=== PATIENT | male | born 1985 | race Caucasian/White ===

== ENCOUNTER 2025-08-17 19:31 | Inpatient (IN) | payer BC, SELFPAY ==
[2025-08-17 19:33] VITALS: BMI 29.8
--- NOTE | 2025-08-17 19:35 | EKG_ITS ---
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1985 Requested By: ED Temporary Provider Order Number: [id number] Reading MD: ED Temporary Provider Measurements Intervals [place] Rate: 100 P: 48 AL: 144 QRS: -69 QRSD: 110 T: 93 QT: 362 QTc: 468 Interpretive Statements SINUS TACHYCARDIA LEFT ATRIAL ENLARGEMENT [-0.15mV P-WAVE IN V1/V2] INCOMPLETE RIGHT BUNDLE BRANCH BLOCK [90+ ms QRS DURATION, TERMINAL R IN V1/V2, 40+ ms S IN I/aVL/V4/V5/V6] LEFT ANTERIOR FASCICULAR BLOCK [QRS AXIS <= -45, QR IN I, RS IN II] LEFT VENTRICULAR HYPERTROPHY AND ST-T CHANGE [VOLTAGE CRITERIA PLUS ST/T ABNORMALITY] No previous ECG available for comparison /[id number]/[email or web address]/[id number].pdf
[2025-08-17 20:04] VITALS: BP 250/158; PULSE 103; RESP 20; TEMP 36.9; O2SAT 98
--- NOTE | 2025-08-17 20:15 | XR_ITS ---
EXAMINATION: PA chest single view TECHNIQUE: Upright PA chest single view Date and time: August 17, 2025, 2056 hours INDICATIONS: Hypertension today with chest pain cardiac palpitations. FINDINGS: Early CHF. Mild to moderate enlargement left ventricle Prominent vascular congestion. Septal edema at the lung bases with small bilateral pleural effusions IMPRESSION: Mild CHF
--- NOTE | 2025-08-17 20:15 | PD.EDRME ---
Rapid Medical Screening Exam RME Arrival date/time: 08/17/25 19:31 This is a case of 39-year-old male with with history of hypertension came in due to chest pain palpitation and hide BP noted 200/150 at home persistence of the symptoms this patient decided to sought consult here in the emergency room Chief Complaint: General Adult/Misc Complain Vital signs: Vital Signs Temperature 98.4 F 08/17/25 20:04 Pulse Rate 103 H 08/17/25 20:04 Respiratory Rate 20 08/17/25 20:04 Blood Pressure 250/158 H 08/17/25 20:04 Pulse Oximetry (%) 98 08/17/25 20:04 Oxygen Delivery Method Room Air 08/17/25 20:04 Exam: Clear breath sounds normal rate regular rhythm no murmur Clinical Impression: Chest pain uncontrolled hypertension
[2025-08-17 20:27] VITALS: BP 250/158; PULSE 103
[2025-08-17 20:50] LABS: Basophils # (Auto) 0.1 Thou/mm3 (0.0-0.2); Basophils % (Auto) 0 % (0-2.5); Eosinophils # (Auto) 0.1 Thou/mm3 (0.0-0.5); Eosinophils % (Auto) 1 % (0-10); Hematocrit 36.6 % (41.0-53.0); Hemoglobin 11.8 g/dL (13.5-16.0); Immature Granulocytes Auto 0.04 Thou/mm3 (0.00-0.00); Lymphocytes # (Auto) 1.5 Thou/mm3 (1.0-4.8); Lymphocytes % (Auto) 12 % (10-50); Mean Corpuscular HGB Conc 32.2 g/dl (31.0-37.0); Mean Corpuscular Hemoglobin 26.9 pg (25.0-35.0); Mean Corpuscular Volume 83 fL (80-100); Monocytes # (Auto) 0.6 Thou/mm3 (0.0-0.8); Monocytes % (Auto) 5 % (0-12); Neutrophils # (Auto) 10.0 Thou/mm3 (1.8-7.7); Neutrophils % (Auto) 82 % (37-80); Nucleated Red Blood Cell # 0.00 Thou/mm3 (0.00-0.00); Nucleated Red Blood Cell % 0 /100 WBC (0); Platelet Count 260 Thou/mm3 (140-440); RDW Standard Deviation 41.4 fL (35.1-43.9); Red Blood Count 4.39 Miln/mm3 (4.50-5.90); White Blood Count 12.2 Thou/mm3 (3.8-10.6)
[2025-08-17 21:12] LABS: B-Type Natriuretic Peptide 678 pg/mL (0-100)
[2025-08-17 21:17] LABS: Alanine Aminotransferase 23 U/L (10-49); Albumin, Serum 4.4 gm/dL (3.5-5.0); Albumin/Globulin Ratio 1.5 (1.2-2.2); Alkaline Phosphatase 104 U/L (46-116); Anion Gap 8 (7-16); Aspartate Amino Transferase 22 U/L (0-34); BUN/Creatinine Ratio 11 Ratio (12-20); Bilirubin,Total 0.6 mg/dL (0.3-1.2); Blood Urea Nitrogen 15 mg/dL (9-23); Calcium 9.5 mg/dL (8.3-10.6); Calcium (Corrected) 9.5 mg/dL (8.5-10.1); Carbon Dioxide 26.0 mMol/L (20.0-31.0); Chloride 107 mMol/L (98-107); Creatinine (Component) 1.4 mg/dL (0.6-1.3); Estimated Creatinine Clearance 85.8 mL/min (>60); Globulin 2.9 gm/dL (2.3-3.5); Glucose 102 mg/dL (74-106); Osmolality,Calculated 282 (275-295); Potassium 4.4 mMol/L (3.4-5.1); Sodium 141 mMol/L (136-145); Thyroid Stimulating Hormone 1.90 uIU/mL (0.55-4.78); Total Protein 7.3 gm/dL (5.7-8.2); eGFR > 60 See Note
[2025-08-17 21:19] LABS: Troponin I 0.123 ng/mL (0.0-0.045)
[2025-08-17 21:44] LABS: Collection Type, Urine Voided; Squamous Epithelial Cell,Urine 0 /hpf (0-5); WBC,Urine 0 /hpf (0-5)
[2025-08-17 21:49] LABS: Bilirubin,Urine Negative (Negative); Blood,Urine Negative (Negative); Clarity,Urine Clear (Clear/Hazy); Color,Urine Lt-Yellow (Lt Yel-Yel); Glucose, Urine Negative (Negative); Ketones,Urine Negative (Negative); Leukocyte Esterase,Urine Negative (Negative); Nitrite,Urine Negative (Negative); PH,Urine 6.5 (5.0-7.0); Protein,Urine Negative (Neg - Trace); RBC,Urine 2 /hpf (0-3); Specific Gravity,Urine 1.017 (1.001-1.035); Urobilinogen,Urine Negative mg/dL (0.0-1.0)
[2025-08-17 22:09] VITALS: BP 222/150; PULSE 100; RESP 25; TEMP 36.9; O2SAT 24
--- NOTE | 2025-08-17 22:20 | PD.EDADULT ---
ED General RME/HPI General Chief complaint: General Adult/Misc Complain Stated complaint: HIGH BP Time Seen by Provider: 08/17/25 22:25 Arrival date/time: 08/17/25 19:31 RME / HPI RME / HPI narrative: 08/17/25 19:31 This is a case of 39-year-old male with with history of hypertension came in due to chest pain palpitation and hide BP noted 200/150 at home persistence of the symptoms this patient decided to sought consult here in the emergency room Dr. Kelly?s Main ED Evaluation: 39yo male presents to the ED for a chief complaint of high blood pressure. Patient states he initially started having some blurry vision to his left eye at the end of June and was started on Brimonidine Tartrate eye drops, but was told to follow-up with his PCP for routine labs. Patient was recently diagnosed with HTN last week and started on lisinopril 10mg 4x/day, reporting he has since been compliant with the medication. Patient has been consistently checking his blood pressure since and his blood pressure has been over 200 systolically and was concerned, so he came in for evaluation. Patient notes he did have chest tightness at 1700 that has since resolved. Denies any shortness of breath, cough, headache, dizziness, or any other associated symptoms. NKA. Related Data Allergies Allergy/AdvReac Type Severity Reaction Status Date / Time No Known Allergies Allergy Verified 08/17/25 19:32 Review of Systems Review of Systems Systems Reviewed: All systems reviewed, normal except as documented Past Medical History Past Medical History CARDIAC: Positive Hypertension; Negative Congestive Heart Failure RESPIRATORY: Negative Chronic Obstructive Pulmonary Disease (COPD) GENITOURINARY: Negative Renal Disease ENDOCRINE: Negative Diabetes Mellitus Type 1 or Diabetes Mellitus Type 2 Social History SMOKING STATUS: Current every day smoker ED Exam Narrative Physical exam: Generally patient is alert no obvious distress, heart regular rate and rhythm, lungs clear to auscultation equal bilaterally, abdomen soft bowel sounds present also nontender, skin is warm pale and dry, neurologic exam no focal motor deficits. No facial asymmetry. Melrude Coma Scale of 15. Course Course Course Narrative: CXR is ordered for determining the etiology of chest pain. Quality Measures none Orders Category Date Time Status EKG (ED ONLY) *Do not use* NOW Care 08/17/25 19:36 Completed EKG (ED ONLY) *Do not use* NOW Care 08/17/25 20:15 Completed EKG (ED Only) Stat Exams 08/17/25 19:35 Draft EKG (ED Only) Stat Exams 08/17/25 20:15 Ordered XR chest 1V Stat Exams 08/17/25 20:15 Completed BNP [B-Type Natriuretic Peptide] Stat Lab 08/17/25 20:33 Completed CBC Stat Lab 08/17/25 20:33 Completed CMP [Comprehensive Metabolic Panel] Stat Lab 08/17/25 20:33 Completed Drug Screen,Urine Stat Lab 08/17/25 23:17 Completed TSH [Thyroid Stimulating Hormone] Stat Lab 08/17/25 20:33 Completed Troponin I Stat Lab 08/17/25 20:33 Completed Troponin I Stat Lab 08/17/25 22:40 Completed Urinalysis Stat Lab 08/17/25 21:26 Completed Labetalol* IV [Trandate IV] Med 08/17/25 22:36 Discontinued 20 mg IVP X1 ONE Labetalol* IV [Trandate IV] Med 08/18/25 00:07 Discontinued 20 mg IVP X1 ONE cloNIDine HCL [Catapres] Med 08/17/25 20:15 Discontinued 0.2 mg PO X1 ONE Vital Signs Vital signs: Vital Signs Temperature 98.4 F 08/17/25 20:04 Pulse Rate 103 H 08/17/25 20:04 Respiratory Rate 20 08/17/25 20:04 Blood Pressure 250/158 H 08/17/25 20:04 Pulse Oximetry (%) 98 08/17/25 20:04 Oxygen Delivery Method Room Air 08/17/25 20:04 Critical Care Time Critical Care Time Total Critical Care Time (min.): 35 Attestation: Excluding other billable procedures Discharge Plan Plan Patient Disposition: Admit Acute Care w/in Hospital Prescriptions/Referrals Referrals: Jeff Hair([facility])MD [Primary Care Provider, Family Practice] - In 1 week Problem List Clinical Impression: Poorly-controlled hypertension, Elevated troponin Patient/Caregiver Discharge Instructions Print Language: Swedish Stand Alone Forms: [employer] Award Info., Patient Portal Info Letter MDM Narrative MDM hospital course (for use when minimal MDM required): Scribe Attestation: 08/17/25 - IKelin am scribing for and in the presence of Dr. Kelly. Patient has poorly controlled hypertension with a blood pressure of 234/166. Patient was complained of chest pain hours prior to presentation. First troponin was 0.123 and the second troponin 2 hours later was 0.123 without change. Chest x-ray shows evidence for vascular congestion. BNP is elevated at greater than 600. EKG showed no ST segment elevations or depressions but does show left ventricular hypertrophy. Patient received labetalol 20 mg IV which helped decrease the blood pressure 183/134. Patient will receive a second dose of labetalol 20 mg IV. I did discuss this case with the hospitalist and the patient will require admission to the hospital for further treatment and evaluation. Differential diagnosis: Hypertensive emergency, poorly controlled hypertension, acute coronary syndrome, CHF Clinical Information Provided by: patient Medical Records reviewed [facility] (Per chart review, patient has no previous ED visits or admissions to this facility.) Meds/Rx considered, not ordered None Labs/Rad/Tests considered, not ordered None Chronic Illness/Social Conditions Explain: Hx HTN Labs Labs: interpreted by me Imaging Imaging interpretation: interpreted by me Imaging Interpretation(s): [place] [facility] Report Signed Patient: PRECIOUS GORDON [facility]. Record#: [id number] Birthdate: 1985 Age/Sex: 39 / M Location: [facility] Attending Dr: Ordering Physician: León Alcantar Date of Service: 08/17/25 Procedure(s): XR chest 1V Accession Number(s): [id number] cc: Lavelle Villatoro MD; León Alcantar~ EXAMINATION: PA chest single view TECHNIQUE: Upright PA chest single view Date and time: August 17, 2025, 2056 hours INDICATIONS: Hypertension today with chest pain cardiac palpitations. FINDINGS: Early CHF. Mild to moderate enlargement left ventricle Prominent vascular congestion. Septal edema at the lung bases with small bilateral pleural effusions IMPRESSION: Mild CHF Dictated By: Lavelle Villatoro MD Signed By: <Electronically signed by Lavelle Villatoro MD in OV> 08/17/252121 Medication Administration(s) Medication Administration History Discontinued Medications Clonidine (Clonidine Hcl 0.1 Mg Tablet) 0.2 mg PO X1 ONE Stop: 08/17/25 20:16 Last Admin: 08/17/25 20:27 Dose: 0.2 mg Documented By: SOM Labetalol HCl (Labetalol Inj 5 Mg/Ml Vial 4 Ml) 20 mg IVP X1 ONE Stop: 08/17/25 22:37 Last Admin: 08/17/25 22:47 Dose: 20 mg Documented By: RADHA Labetalol HCl (Labetalol Inj 5 Mg/Ml Vial 4 Ml) 20 mg IVP X1 ONE Stop: 08/18/25 00:08 Last Admin: 08/18/25 00:14 Dose: 20 mg Documented By: RADHA see above Diagnosis Differential Diagnosis ED Complaint MDM: See MDM
[2025-08-17 23:01] VITALS: BP 201/138
[2025-08-17 23:19] LABS: Troponin I 0.123 ng/mL (0.0-0.045)
[2025-08-17 23:46] LABS: Amphetamine/Methamp Scrn,U Negative (Negative); Barbiturate Screen,Urine Negative (Negative); Benzodiazepines Screen,Urine Negative (Negative); Benzoylecgonine Screen, Ur Negative (Negative); Fentanyl Screen,Urine Negative (Negative); Opiate Screen,Urine Negative (Negative); THC Screen,Urine Positive (Negative)
[2025-08-18] VITALS (19 sets, daily range): BP systolic 150–221; BP diastolic 94–134; PULSE 68–89; RESP 12–20; TEMP 36.3–37.1; O2SAT 96–98
--- NOTE | 2025-08-18 00:51 | ECHO_ITS ---
Patient Info Name: Derek Mcdonnell Age: 39 years : 1985 Gender: Male Ht: 183 cm Wt: 100 kg BSA: 2.27 m2 BP: 180 / 104 mmHg HR: 80 bpm Exam Date: 08/18/2025 6:35 AM Admit Date: 08/18/2025 Site: [facility] Room Number: ER Patient Status: I Exam Type: CA echo doppler complete Roadmaster: Lolita Rodriguez Ordering Physician: Ori Platt Study Info Indications Hypertensive urgency - Primary Location: S2NX Left Ventricular Outflow Tract Name Value Normal LVOT 2D LVOT Diameter 2.2 cm LVOT Doppler LVOT Peak Velocity 172 cm/s LVOT Mean Gradient 6 mmHg LVOT VTI 29 cm LVOT VTI/AV VTI Ratio 1.1 LVOT Stroke Volume 109 ml Pulmonic Valve Name Value Normal PV Doppler PV Peak Velocity 110 cm/s Mitral Valve Name Value Normal MV Doppler MV Mean Gradient 2 mmHg MV Decel Grant 816 cm/s2 MV PHT 39 ms MV Area (PHT) 5.7 cm2 4.0-5.0 MV Area (Cont Eq VTI) 3.7 cm2 MV Diastolic Function MV E Peak Velocity 109 cm/s MV A Peak Velocity 36 cm/s MV E/A 3.0 MV Annular TDI MV Septal e' Velocity 6.6 cm/s MV E/e' (Septal) 16.4 MV Lateral e' Velocity 8.1 cm/s MV E/e' (Lateral) 13.5 MV e' Average 7.35 cm/s MV E/e' (Average) 15.0 Tricuspid Valve Name Value Normal TV Regurgitation Doppler TR Peak Velocity 173 cm/s Estimated PAP/RSVP RA Pressure 3 mmHg <=5 PA Systolic Pressure 15 mmHg <36 RV Systolic Pressure 15 mmHg <36 TV Annular TDI TV Lateral Mabel s' Velocity 16.9 cm/s >=9.5 Aortic Valve Name Value Normal AV 2D/MM AV Cusp Sep (MM) 1.7 cm AV Doppler AV Peak Velocity 166 cm/s AV Mean Gradient 6 mmHg AV VTI 27 cm AV Area (Cont Eq VTI) 4.0 cm2 >=3.0 AV Area (Cont Eq Ashok) 3.9 cm2 AV DI (Ashok) 1.04 AV Regurgitation 2D LVOT Area 3.8 cm2 Ventricles Name Value Normal LV Dimensions 2D/MM IVS Diastolic Thickness (2D) 1.2 cm 0.6-1.0 LVID Diastole (2D) 4.6 cm 4.2-5.8 LVIW Diastolic Thickness (2D) 1.1 cm 0.6-1.0 LVID Systole (2D) 3.3 cm 2.5-4.0 LVOT Diameter 2.2 cm LV Mass (2D Cubed) 192.94 g 88.00-224.00 LV Mass Index (2D Cubed) 85 g/m2 49-115 Relative Wall Thickness (2D) 0.48 <=0.42 IVS/LVIW Diastolic Thickness (2D) 1.09 0.00-1.50 LV Fractional Shortening/Ejection Fraction 2D/MM LV Fractional Shortening (2D) 28 % 25-43 LV EF (2D Teichholz) 55 % RV Dimensions 2D/MM TV Lateral Mabel s' Velocity 16.9 cm/s >=9.5 Atria Name Value Normal LA Dimensions LA Volume (4C A-L) 49 ml LA Volume (BP A-L) 63 ml Left Ventricle Left ventricular chamber dimension is normal. Left ventricular systolic function is normal with visually estimated ejection fraction of 50-55%. There is mild concentric hypertrophy noted in the left ventricle. Left ventricular segmental wall motion is normal. There is grade I diastolic dysfunction in the left ventricle. Right Ventricle Right ventricular chamber dimension is normal. Right ventricular systolic function is normal. Left Atrium Left atrial chamber dimension is mildly enlarged. Right Atrium Right atrial chamber dimension is mildly enlarged. Aortic Valve The aortic valve is trileaflet. There is no aortic valve sclerosis. There is no aortic valve stenosis with a peak velocity of 166 cm/s, mean gradient of 6 mmHg, and aortic valve area of 4.0 cm2. There is no aortic valve regurgitation. Pulmonic Valve The pulmonic valve is normal. There is no pulmonic valve stenosis. There is trace pulmonic regurgitation. Mitral Valve The mitral valve has normal leaflets. There is no mitral valve stenosis. There is trace mitral valve regurgitation. Tricuspid Valve The tricuspid valve leaflets are normal. There is no tricuspid valve stenosis. There is trace tricuspid valve regurgitation. No pulmonary hypertension, estimated pulmonary arterial systolic pressure is 15 mmHg and systemic blood pressure of 180 mmHg in systole. Pericardium/Pleural The pericardium appears normal. There is trivial pericardial effusion with no tamponade. No pleural effusion visualized. Inferior Vena Cava Normal inferior vena cava with >50% collapse upon inspiration consistent with normal right atrial pressure, 3 mmHg. Aorta The aortic measurements are indexed to age and body surface area. The aortic root at the sinus of Valsalva is not well visualized. The prox ascending aorta is not well visualized. Summary 1. Left ventricle size is normal and systolic function is normal. Estimated ejection fraction is 50-55%. There is grade I diastolic dysfunction. There is mild concentric hypertrophy noted. 2. Right ventricle chamber size is normal and systolic function is normal. Estimated RVSP is 15 mmHg. 3. Trace MR,TR,PI. 4. The left atrium is mildly enlarged. The right atrium is mildly enlarged. 5. Normal IVC with estimated RA pressure 3 mmHg. Report Signatures Finalized by Joelle Peralta on 08/21/2025 08:22 AM
[2025-08-18] MEDS: NIFEdipine XL 30 MG TABCR 60 MG PO (01:08)
--- NOTE | 2025-08-18 01:08 | XR_ITS ---
Examination: Retroperitoneal ultrasound, complete Technique: Multiple high resolution grayscale images of the retroperitoneum obtained, including kidneys and bladder. Exam date and time: August 18, 2025, 0119 hours INDICATIONS: Acute renal insufficiency, with hypertension today FINDINGS: Right kidney 10.9 cm cortex 1.4 cm Left kidney 10.7 cm renal cortex 1.7 cm Mild left renal scar formation no hydronephrosis No bladder mass or bladder calculi Bladder prevoid volume 131 cc unable to void Prostate 3.5 x 3.0 x 3.4 cm volume 18.5 cc no prostate nodules IMPRESSION: Bilateral renal cortical thinning Mild left renal scar formation No hydronephrosis or renal calculi No prostate nodules
--- NOTE | 2025-08-18 01:21 | ESHP_ITS ---
<Statement entered by Hubert Estrada MD - 08/18/25 03:02> I have seen and examined the patient. I was physically present for the rodriguez portions of the services provided including history, physical exam, diagnosis, treatment plans and orders. I agree with assessment and plan of care as documented by residents. After examination of the patient and review of the clinical data I feel that this patient needs admission to the hospital for further treatment/evaluation. Even though this this note was carefully revised there may still be minor errors in urology physician due to voice recognition software. Hubert Estrada MD Documentation for date of: 08/18/25 HPI History of Present Illness Chief complaint: Elevated blood pressures and chest discomfort History of present illness: A 39-year-old male with no significant past medical history except for recently diagnosed hypertension during of this year presented to the hospital with chief complaints of elevated blood pressure noted and chest discomfort on the day of admission. 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 Around , he went to see PCP, Dr. Singleton and was started on lisinopril 10 mg. On the day of admission, he went to his routine work and at the workplace during routine checkup of his blood pressure at 4 PM, noted to have blood pressure of 220/120 mmHg following which he went to the clinic and was recommended to take 2 pills of lisinopril 10 mg. He took the medication and while he is sitting on the chair and watching TV, noted mild chest discomfort mainly in the lower chest and upper abdomen without any other associated symptoms. Endorsed that he became more anxious after his colleagues started calling him after the work hours. ED course: - Vitals at the time of admission were significant for blood pressure of 250/158 mmHg, pulse rate 103 bpm - Labs at the time of admission are significant for WBC 12.2, hemoglobin 11.8, creatinine 1.4, troponin 0.123, BNP 678 - Urinalysis tested positive for marijuana - EKG at the time of admission showed normal sinus rhythm with no ST and T wave changes - Chest x-ray did not show any significant opacities except for mild congestion - Admitted in the hospital for hypertensive emergency Past medical history: Hypertension, newly diagnosed Past surgical history: Nonsignificant Social history: Smokes cigarettes 15 pack years, denies alcohol, marijuana or other illicit drugs Allergies: NKDA Review of Systems Review of Systems Systems Reviewed: All systems reviewed, normal except as documented Exam Vital Signs Temp Pulse Resp BP Pulse Ox O2 Del Method FiO2 98 F 76 16 188/130 H 97 Room Air 100 08/18/25 01:10 08/18/25 01:10 08/18/25 01:10 08/18/25 01:10 08/18/25 01:10 08/18/25 01:10 08/17/25 22:09 Narrative Exam General: Awake. HEENT: Normocephalic, atraumatic, mucous membranes moist. Heart: Regular rate and rhythm, no murmurs. Lungs: Clear to auscultation with no wheezing or crackles. Abdomen: Soft, nondistended, nontender, positive bowel sounds. ?No guarding or rebound tenderness. Neurologic: Alert and oriented x3, no gross neurological deficit, and patient able to move all 4 extremities. Extremities: No edema. Skin: No rash or ecchymoses. Results: Labs 08/17/25 20:33 08/17/25 20:33 Labs: Short CBC 08/17/25 Range/Units 20:33 WBC 12.2 H (3.8-10.6) Thou/mm3 Hgb 11.8 L (13.5-16.0) g/dL Hct 36.6 L (41.0-53.0) % Plt Count 260 (140-440) Thou/mm3 BMP 08/17/25 20:33 Sodium 141 Potassium 4.4 Chloride 107 Carbon Dioxide 26.0 BUN 15 Creatinine 1.4 H Glucose 102 Calcium 9.5 Cardiac Enzymes 08/17/25 08/17/25 Range/Units 20:33 22:40 Troponin I 0.123 H* 0.123 H* (0.0-0.045) ng/mL Liver Function 08/17/25 Range/Units 20:33 Total Bilirubin 0.6 (0.3-1.2) mg/dL AST 22 (0-34) U/L ALT 23 (10-49) U/L Alkaline Phosphatase 104 (46-116) U/L Albumin 4.4 (3.5-5.0) gm/dL Urine 08/17/25 Range/Units 21:26 Urine Color Lt-Yellow (Lt Yel-Yel) Urine Clarity Clear (Clear/Hazy) Urine pH 6.5 (5.0-7.0) Ur Specific Hanna 1.017 (1.001-1.035) Urine Protein Negative (Neg - Trace) Urine Glucose (UA) Negative (Negative) Quality Measures Quality Measures none Medications Home Medications and Allergies Allergies Allergy/AdvReac Type Severity Reaction Status Date / Time No Known Allergies Allergy Verified 08/17/25 19:32 Visit Medications Acetaminophen (Acetaminophen 325 Mg Tablet) 650 mg PO Q6H PRN PRN Reason: Fever >101.5 Stop: 09/17/25 00:50 Enoxaparin Sodium (Enoxaparin Sod Inj 40 Mg/0.4 Ml Syringe) 40 mg SC QDAY PAULO Stop: 09/01/25 08:59 Hydralazine HCl (Hydralazine Inj 20 Mg/Ml Vial) 10 mg IVP X1 PRN PRN Reason: SBP>220 Stop: 09/17/25 01:17 Ondansetron HCl (Ondansetron Inj 2 Mg/Ml Inj 2 Ml) 4 mg IVP Q6H PRN; Protocol PRN Reason: NAUSEA OR VOMITING Stop: 09/17/25 00:50 Pantoprazole Sodium (Pantoprazole 40 Mg Tablet) 40 mg PO QDAY PAULO Stop: 09/17/25 08:59 Sennosides (Senna Tablet) 1 tab PO QDAY PRN; Protocol PRN Reason: constipation Stop: 09/17/25 00:50 Discontinued Medications Clonidine (Clonidine Hcl 0.1 Mg Tablet) 0.2 mg PO X1 ONE Stop: 08/17/25 20:16 Last Admin: 08/17/25 20:27 Dose: 0.2 mg Labetalol HCl (Labetalol Inj 5 Mg/Ml Vial 4 Ml) 20 mg IVP X1 ONE Stop: 08/17/25 22:37 Last Admin: 08/17/25 22:47 Dose: 20 mg Labetalol HCl (Labetalol Inj 5 Mg/Ml Vial 4 Ml) 20 mg IVP X1 ONE Stop: 08/18/25 00:08 Last Admin: 08/18/25 00:14 Dose: 20 mg Nifedipine (Nifedipine Xl 30 Mg Tabcr) 60 mg PO X1 ONE Stop: 08/18/25 01:04 Last Admin: 08/18/25 01:08 Dose: 60 mg Assessment & Plan Plan A 39-year-old male with no significant past medical history except for recently diagnosed hypertension during of this year presented to the hospital with chief complaints of elevated blood pressure noted and chest discomfort on the day of admission. # Hypertensive Emergency # Newly diagnosed Hypertension - Chief complaints of elevated blood pressure noted and chest discomfort on the day of admission. - Around , he went to see PCP, Dr. Singleton and was started on lisinopril 10 mg. - On the day of admission, at 4 PM noted to have blood pressure of 220/120 mmHg following which he went to the clinic and was recommended to take 2 pills of lisinopril 10 mg. Diagnostics: - Vitals at the time of admission were significant for blood pressure of 250/158 mmHg, pulse rate 103 bpm - Labs at the time of admission are significant for WBC 12.2, hemoglobin 11.8, creatinine 1.4, troponin 0.123, BNP 678 - Urinalysis tested positive for marijuana - EKG at the time of admission showed normal sinus rhythm with no ST and T wave changes - Chest x-ray did not show any significant opacities except for mild congestion Plan: - Received labetalol 20 mg IV twice and clonidine 0.2 mg P.O once in the ED - 1 dose of nifedipine 60 mg and Hydralazine 100mg orally is given and started on 90 mg of nifedipine once daily - Started on hydralazine 100 mg thrice daily - Will hold BK inhibitor/ARB's for now in view of JOANNA - A1c, lipid panel, TSH is ordered - Renal ultrasound, arterial Doppler is ordered - Patient does not have any electrolyte abnormalities as of now, will hold on testing aldosterone and renin testing for now - Needs a sleep study on outpatient basis to rule out obstructive sleep apnea - Will try to decrease blood pressure to 160/100 mmHg and MAP to be decreased by 30% at the time of admission - IV hydralazine 10 mg as needed if blood pressure is greater than 220/110 # Elevated troponins # Myocardial injury - Troponin at the time of admission is 0.123, repeat troponin is 0.123 - EKG did not have any ST and T wave changes -Likely elevated in the setting of severe hypertension - Patient does not have any typical cardiac symptoms and less likely to have ACS though he had family history of CAD in his mom - CHOCO score is 39, 0.4% of in 6 months. - RHINA Score is 2 points, 8% risk at 14 days of: all-cause mortality, new or recurrent VA, or severe recurrent ischemia requiring urgent revascularization. Plan: - Will trend troponins - Echocardiogram is ordered # Acute kidney injury - At the time of admission, BUN is 15, creatinine is 1.4 - Patient does not have any baseline labs, labs were done on August 12 and was supposed to follow-up tomorrow - At this point, patient does not have any vomitings, diarrhea, poor oral intake. Kidney injury could be chronic from the hypertension or acute in the setting of hypertensive emergency Plan: - Held BK inhibitors/ARB's for now - Renal ultrasound, Doppler is [id number] with results # Anemia, normocytic normochromic - Hemoglobin at the time of admission is 11.8 - Could be having CKD causing anemia of chronic disease versus nutritional Plan: - Iron, B12, folate studies are ordered Hospital Maintenance: Dispo: Tele DVT ppx: lovenox GI ppx: Protonix Diet: Low salt IV lines: Peripheral Code status: Full Patient plan of care was discussed with the attending physician, Dr. Natalie Platt, PGY2
--- NOTE | 2025-08-18 01:23 | XR_ITS ---
EXAMINATION: Renal sonography Renal sonographic evaluation with color and spectral Doppler technique Date and time: August 18, 2025, 0158 hours INDICATIONS: Acute renal insufficiency, hypertensive emergency today TECHNIQUE AND FINDINGS: Multiple high resolution sonographic images kidneys and bladder, retroperitoneum, images supplemented with color and spectral Doppler technique Right kidney 9.8 cm left kidney 11.6 cm No elevation of peak systolic velocities There is elevation of right resistive indices and left resistive indices as well as acceleration times However, renal aorta ratios are normal. IMPRESSION: Smaller right kidney No color or spectral Doppler sonographic findings of renal artery stenosis
[2025-08-18 02:13] LABS: Cardiac Risk Estimate 5.5 RATIO (4.0-6.7); Cholesterol 169 mg/dL (132-200); HDL Cholesterol 31 mg/dL (40-60); LDL Cholesterol,Calculated 119 mg/dL (0-130); Triglycerides 94 mg/dL (30-150)
[2025-08-18] MEDS: hydrALAZINE INJ 20 MG/ML VIAL 10 MG IVP (02:30)
--- NOTE | 2025-08-18 04:08 | PRELIM_ITS ---
Renal/Retroperitoneal ultrasound with Doppler. August 18, 2025 at 0119 hours Clinical history: JOANNA. Technique: Duplex scan of the bilateral renal arterial and venous tree was performed utilizing 2D grayscale imaging, Doppler spectral analysis and color flow. Comparison: None available at the time of this report. Findings: Right: The right kidney measures 10 cm and is unremarkable. There is no hydronephrosis or renal calculus. The corticomedullary differentiation is maintained. Left: The left kidney measures 13.1 cm and is unremarkable. There is no hydronephrosis or renal calculus. The corticomedullary differentiation is maintained. The urinary bladder is unremarkable. The bilateral UVJ jets are demonstrated by Doppler. No abnormalities by Doppler. Enlarged prostate measuring 3.5 x 3.0 x 3.4 cm (volume 18.5 cm). Impression: Unremarkable renal ultrasound examination. Report Electronically Signed By: Ramirez Townsend 08/18/2025 4:06:43 AM [EST]
--- NOTE | 2025-08-18 04:32 | PRELIM_ITS ---
Renal Doppler ultrasound with Doppler and wave Doppler spectral analysis. August 18, 2025 at 0158 hours Clinical history: Hypertensive urgency and JOANNA. Technique: Ultrasound imaging of the kidneys and bladder, retroperitoneum were performed. Images supplemented with color and spectral Doppler technique. Comparison: None available at the time of this report. Findings: The kidneys are unremarkable. The right kidney measures 9.8 x 5.5 x 6.7 cm (volume = 189 mL). The cortical thickness appears unremarkable. There is no hydronephrosis. No renal calculus is identified. The left kidney measures 11.6 x 5.8 x 6.2 cm (volume = 216 mL). The cortical thickness appears unremarkable. There is no hydronephrosis. No renal calculus is identified. The aorta is normal in caliber and demonstrates normal color and spectral Doppler flow pattern with a peak systolic velocity of 108 cm/sec. The renal arteries at its origin, main renal arteries and the intrarenal parenchymal arteries demonstrate normal spectral pattern and resistive indices bilaterally. The renal artery to aortic ratio is within normal limits. No direct or indirect evidence to suggest renal artery stenosis. The renal veins demonstrate normal flow and are unremarkable. Impression: No renal calculus or urinary obstruction. No direct or indirect evidence to suggest renal artery stenosis. Report Electronically Signed By: Ramirez Townsend 08/18/2025 4:31:11 AM [EST]
[2025-08-18 05:13] LABS: Basophils # (Auto) 0.1 Thou/mm3 (0.0-0.2); Basophils % (Auto) 1 % (0-2.5); Eosinophils # (Auto) 0.1 Thou/mm3 (0.0-0.5); Eosinophils % (Auto) 2 % (0-10); Hematocrit 36.1 % (41.0-53.0); Hemoglobin 11.4 g/dL (13.5-16.0); Immature Granulocytes Auto 0.03 Thou/mm3 (0.00-0.00); Lymphocytes # (Auto) 1.8 Thou/mm3 (1.0-4.8); Lymphocytes % (Auto) 22 % (10-50); Mean Corpuscular HGB Conc 31.6 g/dl (31.0-37.0); Mean Corpuscular Hemoglobin 26.3 pg (25.0-35.0); Mean Corpuscular Volume 83 fL (80-100); Monocytes # (Auto) 0.6 Thou/mm3 (0.0-0.8); Monocytes % (Auto) 7 % (0-12); Neutrophils # (Auto) 5.8 Thou/mm3 (1.8-7.7); Neutrophils % (Auto) 69 % (37-80); Nucleated Red Blood Cell # 0.00 Thou/mm3 (0.00-0.00); Nucleated Red Blood Cell % 0 /100 WBC (0); Platelet Count 239 Thou/mm3 (140-440); RDW Standard Deviation 41.3 fL (35.1-43.9); Red Blood Count 4.34 Miln/mm3 (4.50-5.90); White Blood Count 8.4 Thou/mm3 (3.8-10.6)
[2025-08-18 05:30] LABS: Anion Gap 10 (7-16); BUN/Creatinine Ratio 11 Ratio (12-20); Blood Urea Nitrogen 14 mg/dL (9-23); Calcium 9.3 mg/dL (8.3-10.6); Carbon Dioxide 27.4 mMol/L (20.0-31.0); Chloride 106 mMol/L (98-107); Creatinine (Component) 1.3 mg/dL (0.6-1.3); Estimated Creatinine Clearance 92.4 mL/min (>60); Glucose 98 mg/dL (74-106); Osmolality,Calculated 285 (275-295); Potassium 4.5 mMol/L (3.4-5.1); Sodium 143 mMol/L (136-145); eGFR > 60 See Note
[2025-08-18 05:35] LABS: Glucose Estimated Average 103 mg/dL (80-131); Hemoglobin A1C 5.2 % Hgb (4.8-6.0)
[2025-08-18 05:36] LABS: Troponin I 0.109 ng/mL (0.0-0.045)
--- NOTE | 2025-08-18 06:03 | PC.NURSE ---
SPOKE TO DR SHELTON REGARDING PT'S BP CURRENTLY 178/109 HR:89, OKAY TO GIVE HYDRALAZINE 100MG PO.
--- NOTE | 2025-08-18 07:54 | PC.NURSE ---
REPORT GIVEN TO RITA, PATIENT WILL TRANSFER TO ROOM 277
[2025-08-18] MEDS: ENOXAPARIN SOD INJ 40 MG/0.4 ML SYRINGE SC (09:05)
[2025-08-18] MEDS: PANTOPRAZOLE 40 MG TABLET PO (09:07)
[2025-08-18] MEDS: ACETAMINOPHEN 325 MG TABLET 650 MG PO (11:29)
[2025-08-18] MEDS: NIFEdipine XL 30 MG TABCR PO (11:32)
--- NOTE | 2025-08-18 13:08 | ESPR_ITS ---
<Statement entered by Peter Snider MD - 08/18/25 15:39> Patient was examined and case was reviewed with team including attending physician. Note reviewed, I agree with most of its contents and agree with the patient's care as documented by Dr. Goetz Patient seen today at the bedside found awake, alert, orientedx3. Overnight admission for hypertensive emergency with systolic BP of 250. Initially patient came in with mild troponin elevation, likely in the setting of hypertensive emergency. No active symptoms at this time and no EKG changes noted. Vital signs and labs reviewed. Started on hydralazine 100mg TID, and Nifedipine 30mg, in view of JOANNA BK/ARBs will be put on hold. Will continue to monitor BP and decrease it slowly. Possible discharge in the next 24-48 hours. Disposition home Case discussed with my attending Dr. Ying Snider MD PGY-2 Disclaimer: Despite multiple revisions, due to the dictation software being used, the document below may not be free of grammatical errors including phonetic/typographic errors. However, this does not deter from our commitment to providing health care in the patient's best interest in mind. Documentation for date of: 08/18/25 Subjective Subjective Interval history: - Patient evaluated at bedside this morning. - The patient reported a mild headache that progressively worsened throughout the morning. A dose of oxycodone was given for pain relief. Explained to the patient that the headache is likely related to his elevated blood pressure, as he frequently experiences similar headaches. No other symptoms were noted at this time. - Started hydralazine 100 mg TID and nifedipine 30 mg to manage blood pressure. - Patient takes lisinopril at home, but it has been temporarily held due to JOANNA. - Blood pressure will be closely monitored, with gradual reduction. - Patient reports a family history of hypertension with both parents. Patient's mom had heart valve replaced. - Patient is an active smoker, consuming one pack or less per day. - He denies any work-related stress but endorses experiencing some stress related to family matters. - Patient reports a long-standing history of anxiety. - He endorses snoring at night and may require an outpatient sleep study to evaluate for obstructive sleep apnea which can also contribute to his high blood pressure. Exam Vital Signs Temp Pulse Resp BP Pulse Ox O2 Del Method FiO2 97.6 F 78 15 173/119 H 98 Room Air 100 08/18/25 12:00 08/18/25 12:00 08/18/25 12:00 08/18/25 12:00 08/18/25 12:00 08/18/25 12:00 08/17/25 22:09 Narrative Exam Physical Exam General: Awake and in no acute distress. Conversational and non-toxic appearing. HEENT: Normocephalic, atraumatic, extraocular movements intact, pupils equal and reactive to light. No JVD or bruits. Heart: Regular rate and rhythm, no murmurs, rubs or gallops. Lungs: Clear to auscultation with no wheezing or crackles bilaterally. Non- labored respirations, symmetric chest rise, no use of accessory muscles. Abdomen: Soft, nondistended, nontender. No guarding or rebound tenderness. Neurologic: Alert and oriented x3, no gross neurological deficit, and patient able to move all 4 extremities. Extremities: No edema, clubbing or cyanosis. Skin: Warm and dry without rashes. Psychiatric: Cooperative, appropriate mood and affect. Objective Labs 08/19/25 04:20 08/19/25 04:20 Labs: Laboratory Results - last 24 hr 08/17/25 08/17/25 08/17/25 20:33 21:26 22:40 WBC 12.2 H RBC 4.39 L Hgb 11.8 L Hct 36.6 L MCV 83 MCH 26.9 MCHC 32.2 RDW Std Deviation 41.4 Plt Count 260 Neut % (Auto) 82 H Lymph % (Auto) 12 [place] % (Auto) 5 Eos % (Auto) 1 Baso % (Auto) 0 Neut # (Auto) 10.0 H Lymph # (Auto) 1.5 [place] # (Auto) 0.6 Eos # (Auto) 0.1 Baso # (Auto) 0.1 Immature Gran # (Auto) 0.04 H Absolute Nucleated RBC 0.00 Immature Gran % 0 Nucleated RBC % 0 Sodium 141 Potassium 4.4 Chloride 107 Carbon Dioxide 26.0 Anion Gap 8 BUN 15 Creatinine 1.4 H Estim Creat Clear Calc 85.8 eGFR > 60 BUN/Creatinine Ratio 11 L Glucose [address] Glu mg/dL Hemoglobin A1c Calculated Osmolality 282 Calcium 9.5 Corrected Calcium 9.5 Total Bilirubin 0.6 AST 22 ALT 23 Alkaline Phosphatase 104 Troponin I 0.123 H* 0.123 H* B-Natriuretic Peptide 678 H* Total Protein 7.3 Albumin 4.4 Globulin 2.9 Albumin/Globulin Ratio 1.5 Triglycerides 94 Cholesterol 169 LDL Cholesterol, Calc 119 HDL Cholesterol 31 L Cholesterol/HDL Ratio 5.5 TSH 1.90 Ur Collection Type Voided Urine Color Lt-Yellow Urine Clarity Clear Urine pH 6.5 Ur Specific [place] 1.017 Urine Protein Negative Urine Glucose (UA) Negative Urine Ketones Negative Urine Blood Negative Urine Nitrite Negative Urine Bilirubin Negative Urine Urobilinogen (Auto) Negative Ur Leukocyte Esterase Negative Urine RBC 2 Urine WBC 0 Ur Squamous Epith Cells 0 Urine Bacteria None Urine Opiates Screen Urine Fentanyl Screen Ur Barbiturates Screen U Amphetamin/Meth Scrn U Benzodiazepines Scrn U Cocaine Metab Screen U Marijuana (THC) Screen 08/17/25 08/18/25 23:17 04:42 WBC 8.4 RBC 4.34 L Hgb 11.4 L Hct 36.1 L MCV 83 MCH 26.3 MCHC 31.6 RDW Std Deviation 41.3 Plt Count 239 Neut % (Auto) 69 Lymph % (Auto) 22 [place] % (Auto) 7 Eos % (Auto) 2 Baso % (Auto) 1 Neut # (Auto) 5.8 Lymph # (Auto) 1.8 [place] # (Auto) 0.6 Eos # (Auto) 0.1 Baso # (Auto) 0.1 Immature Gran # (Auto) 0.03 H Absolute Nucleated RBC 0.00 Immature Gran % 0 Nucleated RBC % 0 Sodium 143 Potassium 4.5 Chloride 106 Carbon Dioxide 27.4 Anion Gap 10 BUN 14 Creatinine 1.3 Estim Creat Clear Calc 92.4 eGFR > 60 BUN/Creatinine Ratio 11 L Glucose [address] Glu mg/dL 103 Hemoglobin A1c 5.2 Calculated Osmolality 285 Calcium 9.3 Corrected Calcium Total Bilirubin AST ALT Alkaline Phosphatase Troponin I 0.109 H* B-Natriuretic Peptide Total Protein Albumin Globulin Albumin/Globulin Ratio Triglycerides Cholesterol LDL Cholesterol, Calc HDL Cholesterol Cholesterol/HDL Ratio TSH Ur Collection Type Urine Color Urine Clarity Urine pH Ur Specific [place] Urine Protein Urine Glucose (UA) Urine Ketones Urine Blood Urine Nitrite Urine Bilirubin Urine Urobilinogen (Auto) Ur Leukocyte Esterase Urine RBC Urine WBC Ur Squamous Epith Cells Urine Bacteria Urine Opiates Screen Negative Urine Fentanyl Screen Negative Ur Barbiturates Screen Negative U Amphetamin/Meth Scrn Negative U Benzodiazepines Scrn Negative U Cocaine Metab Screen Negative U Marijuana (THC) Screen Positive A Quality Measures Quality Measures none Assessment & Plan Assessment Current Active Medications: Generic Name Dose Route Start Last Admin Trade Name Freq PRN Reason Stop Dose Admin Acetaminophen 650 mg 08/18/25 00:51 08/18/25 11:29 Acetaminophen 325 Mg Tablet PO 09/17/25 00:50 650 mg Q6H PRN Administration Fever >101.5 Enoxaparin Sodium 40 mg 08/18/25 09:00 08/18/25 09:05 Enoxaparin Sod Inj 40 Mg/0.4 Ml Syringe SC 09/01/25 08:59 40 mg QDAY PAULO Administration Hydralazine HCl 100 mg 08/18/25 06:00 08/18/25 06:07 Hydralazine Hcl 25 Mg Tablet PO 09/17/25 05:59 100 mg TID PAULO Administration Nifedipine 30 mg 08/18/25 11:15 08/18/25 11:32 Nifedipine Xl 30 Mg Tabcr PO 09/17/25 11:14 30 mg QDAY PAULO Administration Ondansetron HCl 4 mg 08/18/25 00:51 Ondansetron Inj 2 Mg/Ml Inj 2 Ml IVP 09/17/25 00:50 Q6H PRN NAUSEA OR VOMITING Protocol Pantoprazole Sodium 40 mg 08/18/25 09:00 08/18/25 09:07 Pantoprazole 40 Mg Tablet PO 09/17/25 08:59 40 mg QDAY PAULO Administration Sennosides 1 tab 08/18/25 00:51 Senna Tablet PO 09/17/25 00:50 QDAY PRN constipation Protocol Plan 39-year-old male with recently diagnosed hypertension presents for elevated blood pressure and chest discomfort, admitted for hypertensive emergency. #Hypertensive emergency #Newly diagnosed hypertension - Patient presented to his eye doctor at the end of June with blurry vision in his left eye. He was found to have hypertensive changes in the retina and was started on Brimonidine Tartrate eye drops. - Around , he visited his PCP, Dr. Singleton, and was started on Lisinopril 10 mg for newly diagnosed hypertension. - On the day of ED admission, at 4 PM, the patient noted a blood pressure of 220/120 mmHg. He went to the clinic, where he was advised to take two pills of Lisinopril 10 mg for which he did take. Afterwards while sitting in a chair watching TV, he experienced mild chest discomfort in the lower chest and upper abdomen, without any other associated symptoms. - Upon admission, vitals showed a blood pressure of 250/158 mmHg and a pulse rate of 103 bpm. - Labs at the time of admission were significant for a WBC of 12.2, hemoglobin of 11.8, creatinine of 1.4, troponin of 0.123, and BNP of 678. - Urinalysis was positive for marijuana. - EKG on admission showed normal sinus rhythm with no ST or T-wave changes. - Chest x-ray revealed mild congestion, but no significant opacities. - In the ED, the patient received Labetalol 20 mg IV twice and Clonidine 0.2 mg PO once. - After admission, the patient received one dose of Nifedipine 60 mg follow by Hydralazine 10 mg, follow by Hydralazine 100 mg due to labile blood pressure. - BK inhibitors/ARBs will be held temporarily due to JOANNA. - Renal ultrasound showed no hydronephrosis. - Renal artery Doppler showed no renal artery stenosis. Plan: * Started on Hydralazine 100 mg thrice daily. * Started on Nifedipine 30 mg QD. * A1c, lipid panel, and TSH pending. * No electrolyte abnormalities noted at this time, will hold off on aldosterone and renin testing for now. * Needs an outpatient sleep study to rule out obstructive sleep apnea. * The goal is to decrease systolic blood pressure by 25% in the first 24 hours to avoid causing ischemia to the brain, heart, or kidneys by lowering blood pressure too rapidly. #Elevated troponins #Myocardial injury - Troponin at the time of admission is 0.123, repeat troponin is 0.123, then 0.109. - EKG did not have any ST and T wave changes. - Likely elevated in the setting of severe hypertension. - Patient does not have any typical cardiac symptoms and less likely to have ACS though he had family history of CAD in his mom. - CHOCO score is 39, 0.4% of in 6 months. - RHINA score is 2 points, 8% risk at 14 days: all-cause mortality , new or recurrent CT, or severe recurrent ischemia requiring urgent revascularization. Plan: * Pending echo. #Acute kidney injury - At the time of admission, BUN is 15, creatinine is 1.4. - At this point, patient does not have any vomiting, diarrhea, poor oral intake. Kidney injury could be chronic from the hypertension or acute in the setting of hypertensive emergency. - Renal ultrasound showed no hydronephrosis. - Renal artery Doppler showed no renal artery stenosis. Plan: * Held BK inhibitors/ARB's for now. * Daily renal panel to trend BUN, Cr, and electrolytes. * Avoid nephrotoxins. * Renally dose meds as appropriate. #Anemia, normocytic normochromic - Hemoglobin at the time of admission is 11.8. - Could be having CKD causing anemia of chronic disease versus nutritional. Plan: * Iron, B12, folate studies are ordered. Health Maintenance Disposition: tele DVT prophylaxis: lovenox GI prophylaxis: not indicated Diet: low salt Will: none Lines: Peripheral IV CODE STATUS: FULL --- Patient plan of care was discussed with the senior resident, Dr. Ronnie Snider, and attending physician, . Britany Goetz DO PGY-1 Attending Provider Attestation/Addendum I have examined the patient, reviewed labs and imaging findings, discussed the case with the resident(s), and reviewed entered orders. I agree with the plan of care as outlined in this note. Dr. Ying MD
[2025-08-18] MEDS: NICOTINE PATCH 7 MG/24 HR PATCH.TD24 TOP (21:29)
[2025-08-19] VITALS (9 sets, daily range): BP systolic 149–174; BP diastolic 93–117; PULSE 71–107; RESP 16–18; TEMP 36.1–36.8; O2SAT 97–99
[2025-08-19 05:53] LABS: Basophils # (Auto) 0.1 Thou/mm3 (0.0-0.2); Basophils % (Auto) 1 % (0-2.5); Eosinophils # (Auto) 0.3 Thou/mm3 (0.0-0.5); Eosinophils % (Auto) 2 % (0-10); Hematocrit 39.1 % (41.0-53.0); Hemoglobin 12.2 g/dL (13.5-16.0); Immature Granulocytes Auto 0.05 Thou/mm3 (0.00-0.00); Lymphocytes # (Auto) 1.9 Thou/mm3 (1.0-4.8); Lymphocytes % (Auto) 15 % (10-50); Mean Corpuscular HGB Conc 31.2 g/dl (31.0-37.0); Mean Corpuscular Hemoglobin 25.9 pg (25.0-35.0); Mean Corpuscular Volume 83 fL (80-100); Monocytes # (Auto) 0.8 Thou/mm3 (0.0-0.8); Monocytes % (Auto) 7 % (0-12); Neutrophils # (Auto) 9.3 Thou/mm3 (1.8-7.7); Neutrophils % (Auto) 75 % (37-80); Nucleated Red Blood Cell # 0.00 Thou/mm3 (0.00-0.00); Nucleated Red Blood Cell % 0 /100 WBC (0); Platelet Count 277 Thou/mm3 (140-440); RDW Standard Deviation 41.0 fL (35.1-43.9); Red Blood Count 4.71 Miln/mm3 (4.50-5.90); White Blood Count 12.4 Thou/mm3 (3.8-10.6)
[2025-08-19 06:23] LABS: Alanine Aminotransferase 22 U/L (10-49); Albumin, Serum 4.0 gm/dL (3.5-5.0); Albumin/Globulin Ratio 1.4 (1.2-2.2); Alkaline Phosphatase 103 U/L (46-116); Anion Gap 6 (7-16); Aspartate Amino Transferase 18 U/L (0-34); BUN/Creatinine Ratio 10 Ratio (12-20); Bilirubin,Total 0.6 mg/dL (0.3-1.2); Blood Urea Nitrogen 14 mg/dL (9-23); Calcium 9.5 mg/dL (8.3-10.6); Calcium (Corrected) 9.5 mg/dL (8.5-10.1); Carbon Dioxide 28.9 mMol/L (20.0-31.0); Chloride 107 mMol/L (98-107); Creatinine (Component) 1.4 mg/dL (0.6-1.3); Estimated Creatinine Clearance 84.5 mL/min (>60); Globulin 2.8 gm/dL (2.3-3.5); Glucose 80 mg/dL (74-106); Magnesium 2.2 mg/dL (1.6-2.6); Osmolality,Calculated 282 (275-295); Phosphorous 4.2 mg/dL (2.4-5.1); Potassium 4.3 mMol/L (3.4-5.1); Sodium 142 mMol/L (136-145); Thyroid Stimulating Hormone 1.42 uIU/mL (0.55-4.78); Total Protein 6.8 gm/dL (5.7-8.2); eGFR > 60 See Note
[2025-08-19] MEDS: ACETAMINOPHEN 325 MG TABLET 650 MG PO (07:50)
[2025-08-19] MEDS: ENOXAPARIN SOD INJ 40 MG/0.4 ML SYRINGE SC (08:32)
[2025-08-19] MEDS: NIFEdipine XL 30 MG TABCR PO ×2 (08:33→10:37)
[2025-08-19] MEDS: PANTOPRAZOLE 40 MG TABLET PO (08:33)
--- NOTE | 2025-08-19 13:28 | ESDS_ITS ---
<Statement entered by Peter Snider MD - 08/19/25 15:30> Patient was examined and case was reviewed with team including attending physician. Note reviewed, I agree with most of its contents and agree with the patient's care as documented by Dr. Bishnu Snider MD PGY-2 Planned Discharge Date 08/19/25 DS: Providers Provider Date of admission: 08/18/25 00:52 Primary care physician: Jeff Hair MD Admitting Provider: Hubert Estrada MD Attending Provider on Admission: Hubert Estrada MD Attending Provider on DC: Emerson He MD Discharging Provider: Britany Goetz DO DS: Diagnosis Problem List Completed Was Problem List Reviewed/Reconciled?: Yes Hospital Course Hospital Course Hospital course: A 39-year-old male with newly diagnosed hypertension presented with elevated bl ood pressure (250/158 mmHg) and chest discomfort, diagnosed as a hypertensive emergency. He had blurred vision and hypertensive retinal changes earlier in the year, and his PCP had started him on Lisinopril 10 mg prior to admission. During his stay, his blood pressure was managed with IV Labetalol, Clonidine, Hydralazine, and Nifedipine. Troponin levels were mildly elevated (0.123), likely secondary to severe hypertension, and an echocardiogram was ordered. Acute kidney injury (creatinine 1.4) was monitored, and BK inhibitors were held. Anemia was noted (hemoglobin 11.8), possibly related to chronic kidney disease. He was discharged with a plan for blood pressure follow-up, a sleep study for obstructive sleep apnea, and continued management of hypertension with Hydralazine and Nifedipine. He was advised to follow up with his primary care provider, avoid smoking, maintain a low-salt diet, and to not restart his home Lisinopril until he sees his primary care provider. Patient is medically and physically stable for discharge. Discharge Diagnoses: #Hypertensive Emergency #Newly Diagnosed Hypertension #Elevated Troponins #Acute Kidney Injury #Anemia, Normocytic Normochromic Discharge Plan: Follow up with primary care physician within 1 week of discharge Instructions have been explained to the patient with regards to their me dications and how to take them. Patient was able to explain back to physician and nursing staff how to take their medications. Patient expressed understanding with instructions. New Medications: - Hydralazine 100mg three times daily - Nifedepine 60mg once daily DO NOT RESUME LISINOPRIL UNTIL AFTER SPEAKING TO YOUR PRIMARY DOCTOR. Continue to take the rest of your medications as prescribed by your primary care physician. Patient has been explained that should any symptoms recur or worsen patient is instructed to return to the Emergency Department. Case discussed with my senior resident Dr. Ronnie Snider. Case discussed with my attending . Britany Goetz DO PGY 1 Status at Discharge Overall status at discharge: patient is back to baseline Time Spent with Patient Time attestation: Total time spent providing and/or coordinating discharge services: Time spent: Greater than 30 minutes Exam Vital Signs Temp Pulse Resp BP Pulse Ox O2 Del Method FiO2 98.3 F 83 16 156/109 H 97 Room Air 100 08/19/25 08:00 08/19/25 10:37 08/19/25 08:00 08/19/25 10:37 08/19/25 08:00 08/19/25 08:00 08/17/25 22:09 Narrative Exam Physical Exam General: Awake and in no acute distress. Conversational and non-toxic appearing. HEENT: Normocephalic, atraumatic, extraocular movements intact, pupils equal and reactive to light. No JVD or bruits. Heart: Regular rate and rhythm, no murmurs, rubs or gallops. Lungs: Clear to auscultation with no wheezing or crackles bilaterally. Non- labored respirations, symmetric chest rise, no use of accessory muscles. Abdomen: Soft, nondistended, nontender. No guarding or rebound tenderness. Neurologic: Alert and oriented x3, no gross neurological deficit, and patient able to move all 4 extremities. Extremities: No edema, clubbing or cyanosis. Skin: Warm and dry without rashes. Psychiatric: Cooperative, appropriate mood and affect. Discharge Plan Plan Patient Disposition: HOME (Self Care) Patient condition on transfer: Stable Care Plan Goals: Follow up with primary care physician within 1 week of discharge Instructions have been explained to the patient with regards to their medications and how to take them. Patient was able to explain back to physician and nursing staff how to take their medications. Patient expressed understanding with instructions. New Medications: - Hydralazine 100mg three times daily - Nifedepine 60mg once daily DO NOT RESUME LISINOPRIL UNTIL AFTER SPEAKING TO YOUR PRIMARY DOCTOR. Continue to take the rest of your medications as prescribed by your primary care physician. Patient has been explained that should any symptoms recur or worsen patient is instructed to return to the Emergency Department. Prescriptions/Referrals Prescriptions/Med Rec: New nifedipine 60 mg tablet extended release 60 mg PO QDAY 30 Days Qty: 30 0RF hydralazine 100 mg tablet 100 mg PO TID 30 Days Qty: 90 0RF Continued brimonidine 0.1 % drops 1 drp OPHTHALMIC (EYE) BID Rx Instructions: 1 drop to both eyes twice a day Held lisinopril 10 mg tablet 10 mg PO QDAY Hold Instructions: Resume on 08/28/25. until stated otherwise by your primary doctor Patient Comments: day of admission, pt reports PCP instructed to take a total of 4 tablets due to HTN Referrals: Jeff Hair([facility])MD [Primary Care Provider, Family Practice] Patient/Caregiver Discharge Instructions Education Materials: Controlling High Blood Pressure, Low-Salt Choices, Your High Blood Pressure Risk Factors, Hypertension Dc, ED High Blood Pressure ... Print Language: Korean Stand Alone Forms: [employer] Award Info., Patient Portal Info Letter Discharge Order Discharge Orders: Discharge (Routine); Ordered 08/19/25 Ordered By: Giacomo Pink Quality Discharge Quality Measures VTE prophylaxis Attestestation MD Attestation I have examined the patient, reviewed labs and imaging findings, discussed the case with the resident(s), and reviewed entered orders. I agree with the plan of care as outlined in this note. Time Spent: [address] Ying MD
== END 2025-08-19 14:45 | disposition home or self-care (01) | DRG 305 ==
LOC: SERX 08-18 00:25 → SERHOLD 08-18 01:05 → S2NX 08-18 08:20
PROVIDERS: Nurse Practitioner Family; Admitting Provider Internal Medicine; Emergency Provider Emergency Medicine; PCP Family Medicine; Visit Provider Internal Medicine
DX: I16.1 Hypertensive emergency (principal); I5A Non-ischemic myocardial injury (non-traumatic); N17.9 Acute kidney failure, unspecified; D64.9 Anemia, unspecified; I10 Essential (primary) hypertension; F17.210 Nicotine dependence, cigarettes, uncomplicated; Z79.899 Other long term (current) drug therapy
CPT/HCPCS: 36415; 71045; 76770; 80048; 80053; 80061; 80307; 81001; 83036; 83735; 83880; 84100; 84443; 84484; 85025; 93005; 93306; 93975; 96374; 96375; 99284; J0360; J1650; J1920; A9270